=== PATIENT | female | born 1990 | race Caucasian/White ===

== ENCOUNTER 2018-10-01 13:44 | Emergency (ER) | payer OTHER ==
--- NOTE | 2018-10-01 14:06 | EDM.PDOC ---
ED HPI GENERAL MEDICAL PROBLEM - General Chief Complaint: SLOT HOST Problem Stated Complaint: 5 WKS AND BLEEDING Time Seen by Provider: 10/01/18 14:02 - History of Present Illness INITIAL COMMENTS - FREE TEXT/NARRATIVE: HISTORY AND PHYSICAL: History of present illness: Patient is a 28-year-old white female who presents with first trimester and mild cramping with vaginal spotting she denies any other concern she has had 2 prior pregnancies without complication Review of systems: As per history of present illness and below otherwise all systems reviewed and negative. Past medical history: As per history of present illness and as reviewed below otherwise noncontributory. Surgical history: As per history of present illness and as reviewed below otherwise noncontributory. Social history: No reported history of drug or alcohol abuse. Family history: As per history of present illness and as reviewed below otherwise noncontributory. Physical exam: HEENT: Atraumatic, normocephalic, pupils reactive, negative for conjunctival pallor or scleral icterus, mucous membranes moist, throat clear, neck supple, nontender, trachea midline. Lungs: Clear to auscultation, breath sounds equal bilaterally, chest nontender. Heart: S1S2, regular, negative for clicks, rubs, or JVD. Abdomen: Soft, nondistended, nontender. Negative for masses or hepatosplenomegaly. Negative for costovertebral tenderness. Pelvis: Stable nontender. Genitourinary: Deferred. Rectal: Deferred. Extremities: Atraumatic, negative for cords or calf pain. Neurovascular unremarkable. Neuro: Awake, alert, oriented. Cranial nerves II through XII unremarkable. Cerebellum unremarkable. Motor and sensory unremarkable throughout. Exam nonfocal. Diagnostics: CBC CMP ABO Rh quantitative beta pelvic ultrasound Therapeutics: None Impression: #1 first trimester bleeding #2 threatened Definitive disposition and diagnosis as appropriate pending reevaluation and review of above. lower pelvic pain Pain Score (Numeric/FACES): 2 - Related Data Allergies Allergy/AdvReac Type Severity Reaction Status Date / Time No Known Allergies Allergy Verified 10/15/14 12:48 Home Meds: Home Meds . [No Known Home Meds] 10/01/18 [History] Past Medical History - Infectious Disease History Infectious Disease History: Reports: Chicken Pox - Past Surgical History Female Surgical History: Reports: Section, Endometrial Ablation Social & Family History - Family History Family Medical History: Noncontributory - Tobacco Use Smoking Status *Q: Never Smoker - Recreational Drug Use Recreational Drug Use: No ED ROS GENERAL - Review of Systems Review Of Systems: ROS reveals no pertinent complaints other than HPI. ED EXAM, GENERAL - Physical Exam Exam: See Below (Dictation) Course - Vital Signs Text/Narrative:: Patient emergency department course has been unremarkable quantitative beta was 31 pelvic ultrasound showed no acute findings I discussed with patient the implications and that this can indeed still be an early intrauterine can be an ectopic and it could be an incomplete or threatened miscarriage patient understands and agrees she'll be given a quantitative beta be repeated on Wednesday and follow her SLOT HOST she is to return for pain or bleeding as discussed in any other problems. Last Recorded V/S: Last Vital Signs Temp 36.0 C 10/01/18 13:57 Pulse 86 10/01/18 13:57 Resp 18 10/01/18 13:57 BP 142/89 H 10/01/18 13:57 Pulse Ox 99 10/01/18 13:57 - Orders/Labs/Meds Orders: Active Orders 24 hr Category Date Time Status OB 1st Tri Sgl 1st Gest [US] Stat Exams 10/01/18 14:04 Ordered Labs: Laboratory Tests 10/01/18 10/01/18 10/01/18 Range/Units 14:19 14:19 14:19 WBC 7.99 (4.0-11.0) K/uL RBC 4.79 (4.30-5.90) M/uL Hgb 12.7 (12.0-16.0) g/dL Hct 39.4 (36.0-46.0) % MCV 82.3 (80.0-98.0) fL MCH 26.5 L (27.0-32.0) pg MCHC 32.2 (31.0-37.0) g/dL RDW Std Deviation 42.9 (28.0-62.0) fl RDW Coeff of Dhaval 14 (11.0-15.0) % Plt Count 224 (150-400) K/uL MPV 10.50 (7.40-12.00) fL Neut % (Auto) 57.3 (48.0-80.0) % Lymph % (Auto) 34.0 (16.0-40.0) % [place] % (Auto) 6.5 (0.0-15.0) % Eos % (Auto) 1.9 (0.0-7.0) % Baso % (Auto) 0.3 (0.0-1.5) % Neut # (Auto) 4.6 (1.4-5.7) K/uL Lymph # (Auto) 2.7 H (0.6-2.4) K/uL [place] # (Auto) 0.5 (0.0-0.8) K/uL Eos # (Auto) 0.2 (0.0-0.7) K/uL Baso # (Auto) 0.0 (0.0-0.1) K/uL Nucleated RBC % 0.0 /100WBC Nucleated RBCs # 0 K/uL Sodium 138 (136-145) mmol/L Potassium 3.5 (3.5-5.1) mmol/L Chloride 105 (98-107) mmol/L Carbon Dioxide 25.0 (21.0-32.0) mmol/L BUN 16 (7.0-18.0) mg/dL Creatinine 0.8 (0.6-1.0) mg/dL Est Cr Clr Drug Dosing 88.79 mL/min Estimated GFR (MDRD) > 60.0 ml/min Glucose 94 (74-106) mg/dL Calcium 8.7 (8.5-10.1) mg/dL Total Bilirubin 0.2 (0.2-1.0) mg/dL AST 14 L (15-37) IU/L ALT 13 L (14-63) IU/L Alkaline Phosphatase 77 (46-116) U/L Total Protein 6.9 (6.4-8.2) g/dL Albumin 3.4 (3.4-5.0) g/dL Globulin 3.5 (2.6-4.0) g/dL Albumin/Globulin Ratio 1.0 (0.9-1.6) HCG, Quant 31.0 mIU/mL Blood Type O POSITIVE Departure - Departure Time of Disposition: 15:41 Disposition: Home, Self-Care 01 Condition: Good Clinical Impression: First trimester bleeding - Discharge Information Referrals: PCP,None [Primary Care Provider] - Forms: ED Department Discharge Additional Instructions: The following information is given to patients seen in the emergency department who are being discharged to home. This information is to outline your options for follow-up care. We provide all patients seen in our emergency department with a follow-up referral. The need for follow-up, as well as the timing and circumstances, are variable depending upon the specifics of your emergency department visit. If you don't have a primary care physician on staff, we will provide you with a referral. We always advise you to contact your personal physician following an emergency department visit to inform them of the circumstance of the visit and for follow-up with them and/or the need for any referrals to a consulting specialist. The emergency department will also refer you to a specialist when appropriate. This referral assures that you have the opportunity for followup care with a specialist. All of these measure are taken in an effort to provide you with optimal care, which includes your followup. Under all circumstances we always encourage you to contact your private physician who remains a resource for coordinating your care. When calling for followup care, please make the office aware that this follow-up is from your recent emergency room visit. If for any reason you are refused follow-up, please contact the [facility] emergency department at and asked to speak to the emergency department charge nurse. Follow-up Wednesday with OB credit associate yajaira beta on Wednesday return as needed as discussed vaginal rest as discussed - My Orders Last 24 Hours: My Active Orders 10/01/18 14:04 OB 1st Tri Sgl 1st Gest [US] Stat - Assessment/Plan Last 24 Hours: My Active Orders 10/01/18 14:04 OB 1st Tri Sgl 1st Gest [US] Stat
[2018-10-01 15:01] LABS: CHLORIDE,CL 105 mmol/L (98-107); SODIUM,NA 138 mmol/L (136-145)
[2018-10-01 16:15] VITALS: BP 142/91
--- NOTE | 2018-10-01 16:23 | US ---
INDICATION: Abdominal pain. Vaginal bleeding. TECHNIQUE: Transvaginal pelvic/obstetrical ultrasound. FINDINGS: Uterus measures 7.6 x 4.0 x 4.7 cm. Left ovary surgically absent. Right ovary measures 2.8 x 1.8 x 2.8 cm. The endometrial stripe is moderately thickened at 1.4 cm. Anechoic areas in the lower uterus and cervix region likely nabothian cysts. Some of these are moderate in size. Tiny hypoechoic focus in the endometrium measuring 4 mm. This could be an early gestational sac but is not diagnostic. Suggest followup beta HCG levels and followup ultrasound to determine if this is a extremely early intrauterine . No ectopic on this exam although this diagnosis cannot be excluded on this exam. Right ovary has arterial venous blood flow and is normal with small cysts and follicles. Blood flow confirmed the right ovary. Remainder negative. IMPRESSION: 1. 4 mm hypoechoic structure in the endometrium could be an early gestational sac but is not diagnostic. Suggest followup HCG levels, followup ultrasound and clinical and laboratory correlation. 2. No ectopic is seen on this exam but this diagnosis cannot be excluded on this ultrasound in this clinical context. 3. No free fluid in the pelvis. 4. Endometrial stripe is thickened to 1.4 cm. 5. Left ovary surgically absent. Right ovary normal. Dictated by Antonio Ramsay MD @ Oct 01 2018 4:16PM Signed by Dr. Antonio Ramsay @ Oct 01 2018 4:21PM
== END 2018-10-01 16:15 | disposition home or self-care (01) ==
LOC: MW.ED 13:44
DX: O20.0 Threatened abortion (principal); Z3A.01 Less than 8 weeks gestation of pregnancy
CPT/HCPCS: 36415; 76801; 76801-26; 80053; 84702; 85025; 86900; 86901; 99284-25